=== PATIENT | male | born 1985 | race Caucasian/White ===

== ENCOUNTER 2016-11-21 13:26 | Emergency (ER) | payer OTHER ==
--- NOTE | ~2016-11-21 | CR126 ---
[facility] A Service of [facility] & [facility] RADIOLOGY TEXT RESULTS PATIENT: SONIA MONTGOMERY LOCATION: [facility] : 87 UNIT #: [id number] AGE: [address]: Cee Will SEX: M ORDER DR: [id number] [facility] [address] [place], [place] [address] [id number] MR#: [id number] Acc #: [id number] NAME: SONIA MONTGOMERY. : 1985 SEX: M STUDY DATE/TIME: 11/21/2016 12:42 UNIT: CFTX ROOM: STUDY DESCRIPTION: CR Foot Complete Min 3 View Lt Attending Physician: Cee Will Pa-C Ordering Physician: Cee Will Pa-C Primary Care Physician: Primary Care Physician No MEDICAL IMAGING REPORT This report is preliminary unless electronic signature is present EXAM Left foot series HISTORY Pain, swelling, bruising today. 2 hours ago hit by forklift. Left foot pain and swelling first metatarsal. FINDINGS AP, lateral and oblique radiographs of the left foot are presented. No comparisons. Complete intraarticular fracture medial aspect of the head of the first proximal phalanx. Fracture fragment measures 5 and 7 mm in diameter. It remains normally aligned. Minimal distraction by 1 mm or less. No significant angulation. The fracture plane is oblique and enters the midportion of the interphalangeal joint. The joint is normally located. There are two faint approximately 1 to 2 mm calcific densities along the lateral aspect of the first digit proximal phalangeal head favored to represent two small cortical chip fractures. No other fracture. No traumatic joint malalignment. Soft tissue swelling great toe. No soft tissue defect, subcutaneous air or radiodense foreign body. Dictated by... Los Hudson M.D. THIS IS AN ELECTRONICALLY VERIFIED REPORT Los Hudson M.D. at 11/22/2016 3:51 PM Aj TD: 11/21/2016 14:49 JOB #: [id number] MEDICAL IMAGING REPORT [facility] A Service of [facility] & [facility] RADIOLOGY TEXT RESULTS PATIENT: SONIA MONTGOMERY LOCATION: [facility] #: [id number] : 87 UNIT #: [id number] AGE: [address]: Cee Will SEX: M ORDER DR: Page 1 of 1 COPY
[~2016-11-21 13:26] MED LIST: KEFLEX PO
== END 2016-11-21 14:06 | disposition home or self-care (01) ==
LOC: CED 13:26
DX: S92.412A Displaced fracture of proximal phalanx of left great toe, initial encounter for closed fracture (principal); W22.8XXA Striking against or struck by other objects, initial encounter; Y92.69 Other specified industrial and construction area as the place of occurrence of the external cause; Y99.0 Civilian activity done for income or pay
CPT/HCPCS: 29550; 73630; 99283